=== PATIENT | male | born 1995 | race African-American/Black ===

== ENCOUNTER 2024-02-16 02:00 | Emergency (ER) | payer SELFPAY ==
[~2024-02-16] VITALS: Ht 188 cm; Wt 90.0 kg
[2024-02-16 02:03] VITALS: TEMP 98.5; O2SAT 98
[2024-02-16] MEDS ORDERED: MORPHINE SULFATE 4 MG/ML INJ (FOR IV/IM USE) IV STA (02:41)
[2024-02-16] MEDS ORDERED: ONDANSETRON HCL 4MG/2ML INJ IV STA (02:41)
[2024-02-16] MEDS: SODIUM CHLORIDE 0.9% 1,000 ML IV ONE (02:45)
[2024-02-16] MEDS ORDERED: TETANUS, DIPHTHERIA, PERTUSSIS VAC/PF 0.5ML (>10YR OLD) IM ONE ×2 (02:45→03:45)
[2024-02-16 03:15] VITALS: BP 133/88; PULSE 67; RESP 16
[2024-02-16] MEDS: ONDANSETRON HCL 4MG/2ML INJ IV NR (03:15)
[2024-02-16] MEDS: MORPHINE SULFATE 4 MG/ML INJ (FOR IV/IM USE) IV NR (03:15)
[2024-02-16] MEDS: IOHEXOL-300 100 ML BOTTLE ONE (04:16)
[2024-02-16 04:24] LABS: BASOPHILS % 0.5 % (0.0-2.0); EOSINOPHILS % 0.6 % (0.0-5.0); HEMATOCRIT. 40.5 % (42.0-52.0); HEMOGLOBIN. 13.7 g/dL (14.0-18.0); LYMPHOCYTES % 11.7 % (20.0-50.0); MEAN CORPUSCULAR HEMOGLOBIN 31.5 pg (28.0-32.0); MEAN CORPUSCULAR HGB CONC 33.7 g/dL (31.0-37.0); MEAN CORPUSCULAR VOLUME 93.3 fL (80.0-94.0); MEAN PLATELET VOLUME 9.6 fl (7.4-10.4); MONOCYTES % 5.2 % (2.0-8.0); PLATELET 170 x1000/uL (130-400); RED BLOOD CELL COUNT 4.34 mill/uL (4.7-6.1); RED CELL DISTRIBUTION WIDTH 13.9 % (11.6-14.6); WHITE BLOOD COUNT 10.6 x1000/uL (4.5-11.0)
[2024-02-16 04:35] LABS: CHLORIDE 106 mEq/L (98-107); POTASSIUM 3.7 mEq/L (3.5-5.1); SODIUM 140 mEq/L (136-145)
[2024-02-16 04:37] LABS: CARBON DIOXIDE 25 mEq/L (21-32)
[2024-02-16 04:42] LABS: CREATININE 1.1 mg/dL (0.6-1.3); GLUCOSE 98 mg/dL (70-105); UREA NITROGEN BLOOD 16 mg/dL (9-23)
[2024-02-16] MEDS ORDERED: HYDR-4001 MT (05:33)
[2024-02-16] MEDS ORDERED: CETI10CA2 MT (05:33)
[2024-02-16] MEDS ORDERED: AMOX1TAB16 MT (05:33)
[2024-02-16] MEDS: TETANUS, DIPHTHERIA, PERTUSSIS VAC/PF 0.5ML (>10YR OLD) IM ONE (06:41)
== END 2024-02-16 07:12 | disposition home or self-care (01) ==
LOC: ER 02:12
DX: S02.2XXA Fracture of nasal bones, initial encounter for closed fracture (principal); S02.32XA Fracture of orbital floor, left side, initial encounter for closed fracture; S02.832A Fracture of medial orbital wall, left side, initial encounter for closed fracture; S02.31XA Fracture of orbital floor, right side, initial encounter for closed fracture; S02.831A Fracture of medial orbital wall, right side, initial encounter for closed fracture; V98.8XXA Other specified transport accidents, initial encounter; Y93.89 Activity, other specified; Y92.89 Other specified places as the place of occurrence of the external cause; Y99.8 Other external cause status
CPT/HCPCS: 99285; 70450; 96374; 71045; 96361; 96375; 80048; 85025; 86850; 86900; 86901; 36415; 72170; 70486; 71260; 72125; 74177; 90715; 90471; Q9967; J2405; J2270; J7030